=== PATIENT | male | born 1970 | race African-American/Black ===

== ENCOUNTER 2021-05-24 07:29 | Emergency (ER) | payer OTHER ==
[~2021-05-24] VITALS: Ht 165.1 cm; Wt 75.0 kg
[2021-05-24 08:27] LABS: BASOPHILS % 0.4 % (0.0-2.0); EOSINOPHILS % 2.3 % (0.0-5.0); HEMATOCRIT. 36.9 % (42.0-52.0); HEMOGLOBIN. 12.1 g/dL (14.0-18.0); LYMPHOCYTES % 22.4 % (20.0-50.0); MEAN CORPUSCULAR HEMOGLOBIN 27.4 pg (28.0-32.0); MEAN CORPUSCULAR VOLUME 83.5 fL (80.0-94.0); MEAN PLATELET VOLUME 6.9 fl (7.4-10.4); MONOCYTES % 12.2 % (2.0-8.0); NEUTROPHILS % 62.7 % (40.0-76.0); PLATELET 360 x1000/uL (130-400); RED BLOOD CELL COUNT 4.42 mill/uL (4.7-6.1); RED CELL DISTRIBUTION WIDTH 17.1 % (11.6-14.6)
[2021-05-24 08:34] LABS: CHLORIDE 109 mEq/L (98-107)
[2021-05-24 09:27] VITALS: BP 151/88
== END 2021-05-24 11:11 | disposition home or self-care (01) ==
LOC: ER 07:29
DX: R07.89 Other chest pain (principal); R00.2 Palpitations; R53.1 Weakness
CPT/HCPCS: 36415; 71045; 80053; 84484; 85025; 93005; 99285

== ENCOUNTER 2021-10-24 13:35 | Emergency (ER) | payer OTHER ==
[~2021-10-24] VITALS: Ht 198.1 cm; Wt 105.0 kg
[2021-10-24] MEDS ORDERED: IBUPROFEN 800MG TABLET PO ONE (14:30)
[2021-10-24] MEDS ORDERED: IBUP-2030 MT (15:27)
[2021-10-24 16:08] VITALS: BP 126/75
== END 2021-10-24 16:10 | disposition home or self-care (01) ==
LOC: ER 13:35
DX: S59.802A Other specified injuries of left elbow, initial encounter (principal); S69.82XA Other specified injuries of left wrist, hand and finger(s), initial encounter; V49.49XA Driver injured in collision with other motor vehicles in traffic accident, initial encounter; Y93.89 Activity, other specified; Y92.89 Other specified places as the place of occurrence of the external cause; Y99.8 Other external cause status
CPT/HCPCS: 73080; 73110; 99284

== ENCOUNTER 2021-10-28 11:23 | Emergency (ER) | payer OTHER ==
[~2021-10-28] VITALS: Ht 198.1 cm; Wt 104.0 kg
[~2021-10-28 11:23] MED LIST: IBUP-2030 MT
[2021-10-28 11:32] VITALS: BP 106/62
== END 2021-10-28 15:08 | disposition home or self-care (01) ==
LOC: ER 11:23
DX: S59.902D Unspecified injury of left elbow, subsequent encounter (principal); S60.912D Unspecified superficial injury of left wrist, subsequent encounter; V09.9XXD Pedestrian injured in unspecified transport accident, subsequent encounter
CPT/HCPCS: 99281

== ENCOUNTER 2023-12-28 18:35 | Inpatient (IN) | payer OTHER, MEDICAID ==
[~2023-12-28] VITALS: Ht 198.1 cm; Wt 86.4 kg
[2023-12-28 19:18] LABS: BASOPHILS % 0.2 % (0.0-2.0); LYMPHOCYTES % 9.5 % (20.0-50.0); MEAN CORPUSCULAR HEMOGLOBIN 20.9 pg (28.0-32.0); MEAN CORPUSCULAR HGB CONC 29.9 g/dL (31.0-37.0); MEAN CORPUSCULAR VOLUME 69.9 fL (80.0-94.0); MEAN PLATELET VOLUME 7.6 fl (7.4-10.4); MONOCYTES % 13.7 % (2.0-8.0); NEUTROPHILS % 76.6 % (40.0-76.0); PLATELET 564 x1000/uL (130-400); RED BLOOD CELL COUNT 2.98 mill/uL (4.7-6.1); RED CELL DISTRIBUTION WIDTH 33.8 % (11.6-14.6); WHITE BLOOD COUNT 24.1 x1000/uL (4.5-11.0)
[2023-12-28 19:21] LABS: DIFFERENTIAL COMMENT 1
[2023-12-28 19:23] LABS: POTASSIUM 3.8 mEq/L (3.5-5.1)
[2023-12-28 19:48] LABS: HEMATOCRIT. 20.9 % (42.0-52.0); HEMOGLOBIN. 6.2 g/dL (14.0-18.0)
[2023-12-28 20:22] LABS: ADD RBC MORPHOLOGY YES
[2023-12-28 20:23] LABS: ANISOCYTOSIS 3+; HYPOCHROMASIA 2+; MICROCYTOSIS 3+; PLATELET ESTIMATE INCREASED
[2023-12-29] VITALS (9 sets, daily range): BP systolic 116–156; BP diastolic 65–83; PULSE 83–109; RESP 18–20; TEMP 36.78072–39.39204; O2SAT 96–100
[2023-12-29] MEDS ORDERED: ACETAMINOPHEN 325MG TABLET PO PRN
[2023-12-29] MEDS: HYDROCODONE/ACETAMINOPHEN 10/325MG TABLET PO PRN (00:38)
[2023-12-29 10:32] LABS: HEMATOCRIT. 22.7 % (42.0-52.0); MEAN CORPUSCULAR HGB CONC 29.7 g/dL (31.0-37.0); MEAN CORPUSCULAR VOLUME 70.7 fL (80.0-94.0); MEAN PLATELET VOLUME 8.7 fl (7.4-10.4); PLATELET 530 x1000/uL (130-400); RED BLOOD CELL COUNT 3.21 mill/uL (4.7-6.1); RED CELL DISTRIBUTION WIDTH 32.7 % (11.6-14.6); WHITE BLOOD COUNT 20.8 x1000/uL (4.5-11.0)
[2023-12-29 11:15] LABS: DIFFERENTIAL COMMENT 1
[2023-12-29 11:18] LABS: HEMOGLOBIN. 6.7 g/dL (14.0-18.0)
[2023-12-29] MEDS ORDERED: ONDANSETRON HCL 4MG/2ML INJ IV PRN (11:30)
[2023-12-29] MEDS ORDERED: LEVOFLOXACIN 500MG PREMIX 100 ML IV SCH (13:00)
[2023-12-29] MEDS ORDERED: LEVOFLOXACIN 250MG PREMIX 50 ML IV SCH ×2 (14:00→18:00)
[2023-12-29] MEDS: ASCORBIC ACID 500 MG TABLET PO SCH (17:35)
[2023-12-29] MEDS: PANTOPRAZOLE SODIUM 40 MG/VIAL IV SCH (17:35)
[2023-12-29] MEDS: FERROUS SULFATE 325MG TABLET PO SCH (17:35)
[2023-12-29] MEDS ORDERED: NALOXONE HCL 0.4MG/ML VIAL IV PRN (17:45)
[2023-12-29 18:22] LABS: HEMOGLOBIN 7.3 g/dL (14.0-18.0)
[2023-12-29] MEDS: LEVOFLOXACIN 500MG PREMIX 100 ML IV SCH (18:50)
[2023-12-29 19:00] LABS: INR 1.1; PROTHROMBIN TIME 12.4 sec (9.6-11.0)
[2023-12-29] MEDS: LEVOFLOXACIN 250MG PREMIX 50 ML IV SCH (19:54)
[2023-12-30] VITALS: BP 136/89; PULSE 98; RESP 18; TEMP 37.16964; O2SAT 100
[2023-12-30 04:00] VITALS: BP 119/89; PULSE 101; RESP 19; TEMP 37.503; O2SAT 98
[2023-12-30 08:00] VITALS: BP 136/66; PULSE 86; RESP 18; TEMP 36.6696; O2SAT 100
[2023-12-30 11:35] LABS: CHLORIDE 105 mEq/L (98-107); POTASSIUM 4.8 mEq/L (3.5-5.1); SODIUM 135 mEq/L (136-145)
[2023-12-30 11:37] LABS: CARBON DIOXIDE 26 mEq/L (21-32); HEMATOCRIT. 26.2 % (42.0-52.0); HEMOGLOBIN. 7.9 g/dL (14.0-18.0); MEAN CORPUSCULAR HEMOGLOBIN 21.6 pg (28.0-32.0); MEAN PLATELET VOLUME 7.2 fl (7.4-10.4); PLATELET 575 x1000/uL (130-400); RED BLOOD CELL COUNT 3.64 mill/uL (4.7-6.1); RED CELL DISTRIBUTION WIDTH 32.6 % (11.6-14.6); WHITE BLOOD COUNT 16.6 x1000/uL (4.5-11.0)
[2023-12-30 11:38] LABS: CALCIUM 8.8 mg/dL (8.7-10.4)
[2023-12-30 11:42] LABS: CREATININE 1.7 mg/dL (0.6-1.3); GLUCOSE 102 mg/dL (70-105)
[2023-12-30 11:43] LABS: UREA NITROGEN BLOOD 18 mg/dL (9-23)
[2023-12-30 11:44] LABS: ALANINE AMINOTRANSFERASE 41 IU/L (10-49); ALBUMIN 3.1 g/dL (3.2-4.8); ASPARTATE AMINOTRANSFERASE 36 IU/L (<34)
[2023-12-30 11:45] LABS: BILIRUBIN DIRECT 0.4 mg/dL (<=3.0); BILIRUBIN TOTAL 0.9 mg/dL (0.1-1.0); PROTEIN TOTAL 6.5 g/dL (6.0-8.3)
[2023-12-30 12:00] VITALS: BP 132/73; RESP 18; TEMP 36.114; O2SAT 100
[2023-12-30 12:07] LABS: DIFFERENTIAL COMMENT 1
[2023-12-30 12:44] LABS: CREATINE KINASE 266 IU/L (46-171)
[2023-12-30 12:59] LABS: HEPATITIS B SURFACE ANTIGEN NEGATIVE (Negative)
[2023-12-30 13:19] LABS: HEPATITIS A AB IGM NEGATIVE (Negative)
[2023-12-30 13:20] LABS: HEPATITIS B CORE AB IGM NEGATIVE (Negative)
[2023-12-30 13:21] LABS: HEPATITIS C AB NON REACTIVE (Neg) (Negative)
[2023-12-30] MEDS: METRONIDAZOLE 500MG TABLET PO SCH (13:34)
[2023-12-30 15:00] VITALS: BP 132/73; PULSE 87; RESP 18; TEMP 35.89176; O2SAT 100
[2023-12-30 16:59] LABS: CLARITY URINE CLEAR (CLEAR); COLOR URINE DARK YELLOW (YELLOW); GLUCOSE URINE NEGATIVE (NEGATIVE); KETONES URINE NEGATIVE (NEGATIVE); LEUKOCYTE ESTERASE URINE NEGATIVE (NEGATIVE); NITRITE URINE NEGATIVE (NEGATIVE); OCCULT BLOOD URINE NEGATIVE (NEGATIVE); PH URINE 5.5 (4.5-8.0); PROTEIN URINE 1+ (NEGATIVE); SPECIFIC GRAVITY URINE 1.021 (1.005-1.030)
[2023-12-30 17:53] LABS: BACTERIA URINE 2+; RBC URINE NONE SEEN /hpf (0-2); SQUAMOUS EPITHELIAL CELL URINE RARE /lpf (RARE/1+); WBC URINE 0-2 /hpf (0-2)
[2023-12-30] MEDS: LACTOBACILLUS GG CAPSULE PO SCH (17:54)
[2023-12-30 18:18] LABS: ANISOCYTOSIS 3+; HYPOCHROMASIA 2+; MICROCYTOSIS 2+; PLATELET ESTIMATE INCREASED
[2023-12-30] MEDS: LEVOFLOXACIN 250MG TABLET PO SCH (19:02)
[2023-12-30 20:00] VITALS: BP 134/82; PULSE 77; RESP 18; TEMP 36.61404; O2SAT 100
[2023-12-30 21:50] LABS: PLATELET ESTIMATE SLIGHTLY INCREASED
[2023-12-30 21:51] LABS: ANISOCYTOSIS 3+; HYPOCHROMASIA 2+; MICROCYTOSIS 2+
[2023-12-30 21:52] LABS: TARGET CELLS 1+
[2023-12-30 22:14] LABS: HEMATOCRIT 23.5 % (42.0-52.0); HEMOGLOBIN 7.2 g/dL (14.0-18.0)
[2023-12-31] VITALS: BP 136/71; PULSE 81; RESP 18; TEMP 36.78072; O2SAT 100
[2023-12-31 04:00] VITALS: BP 117/88; PULSE 71; RESP 18; TEMP 36.72516; O2SAT 100
[2023-12-31 06:09] LABS: CHLORIDE 104 mEq/L (98-107); POTASSIUM 4.4 mEq/L (3.5-5.1); SODIUM 135 mEq/L (136-145)
[2023-12-31 06:12] LABS: CARBON DIOXIDE 25 mEq/L (21-32)
[2023-12-31 06:13] LABS: CALCIUM 8.7 mg/dL (8.7-10.4)
[2023-12-31 06:17] LABS: CREATININE 1.5 mg/dL (0.6-1.3); GLUCOSE 82 mg/dL (70-105)
[2023-12-31 06:18] LABS: ALANINE AMINOTRANSFERASE 34 IU/L (10-49); UREA NITROGEN BLOOD 18 mg/dL (9-23)
[2023-12-31 06:19] LABS: ASPARTATE AMINOTRANSFERASE 32 IU/L (<34)
[2023-12-31 06:20] LABS: BILIRUBIN DIRECT 0.3 mg/dL (<=3.0); BILIRUBIN TOTAL 0.6 mg/dL (0.1-1.0)
[2023-12-31 06:28] LABS: HEMATOCRIT. 23.9 % (42.0-52.0); HEMOGLOBIN. 7.3 g/dL (14.0-18.0); MEAN CORPUSCULAR HEMOGLOBIN 21.9 pg (28.0-32.0); MEAN CORPUSCULAR HGB CONC 30.7 g/dL (31.0-37.0); MEAN CORPUSCULAR VOLUME 71.4 fL (80.0-94.0); MEAN PLATELET VOLUME 7.4 fl (7.4-10.4); PLATELET 561 x1000/uL (130-400); RED BLOOD CELL COUNT 3.34 mill/uL (4.7-6.1); RED CELL DISTRIBUTION WIDTH 32.6 % (11.6-14.6); WHITE BLOOD COUNT 13.9 x1000/uL (4.5-11.0)
[2023-12-31 06:43] LABS: INR 1.2
[2023-12-31 07:34] LABS: DIFFERENTIAL COMMENT 1
[2023-12-31 08:00] VITALS: BP 142/94; PULSE 60; RESP 18; TEMP 36.3918; O2SAT 100
[2023-12-31] MEDS: BISACODYL 5MG TABLET PO SCH (11:45)
[2023-12-31] MEDS: SORBITOL 70% SOLN 30ML PO SCH (11:45)
[2023-12-31 12:00] VITALS: BP 135/83; PULSE 80; RESP 18; TEMP 36.55848; O2SAT 100
[2023-12-31] MEDS: METOCLOPRAMIDE HCL 10MG/2ML VIAL IV SCH (14:34)
[2023-12-31 16:00] VITALS: BP 151/89; PULSE 81; RESP 18; TEMP 36.3918; O2SAT 100
[2023-12-31 16:27] LABS: PLATELET ESTIMATE SLIGHTLY INCREASED
[2023-12-31 16:28] LABS: ANISOCYTOSIS 2+; HYPOCHROMASIA 2+; MICROCYTOSIS 2+; TARGET CELLS 1+
[2023-12-31 20:00] VITALS: BP 144/81; PULSE 82; RESP 18; TEMP 36.50292; O2SAT 100
[2023-12-31] MEDS: DEXT 5%/0.9% NACL 1,000 ML IV SCH (22:55)
[2023-12-31] MEDS: ACETAMINOPHEN 500MG TABLET PO PRN (22:55)
[2024-01-01] VITALS: BP 150/85; PULSE 91; RESP 18; TEMP 36.28068; O2SAT 100
[2024-01-01 04:00] VITALS: BP 146/62; PULSE 95; TEMP 36.89184; O2SAT 100
[2024-01-01 07:04] LABS: HEMATOCRIT. 25.6 % (42.0-52.0); HEMOGLOBIN. 7.7 g/dL (14.0-18.0); MEAN CORPUSCULAR HEMOGLOBIN 21.7 pg (28.0-32.0); MEAN CORPUSCULAR HGB CONC 30.2 g/dL (31.0-37.0); MEAN CORPUSCULAR VOLUME 71.8 fL (80.0-94.0); MEAN PLATELET VOLUME 7.4 fl (7.4-10.4); PLATELET 704 x1000/uL (130-400); RED BLOOD CELL COUNT 3.57 mill/uL (4.7-6.1); RED CELL DISTRIBUTION WIDTH 33.7 % (11.6-14.6); WHITE BLOOD COUNT 20.9 x1000/uL (4.5-11.0)
[2024-01-01 07:09] LABS: CHLORIDE 103 mEq/L (98-107); POTASSIUM 3.9 mEq/L (3.5-5.1); SODIUM 134 mEq/L (136-145)
[2024-01-01 07:10] LABS: CALCIUM 8.9 mg/dL (8.7-10.4); CARBON DIOXIDE 26 mEq/L (21-32)
[2024-01-01 07:15] LABS: CREATININE 1.6 mg/dL (0.6-1.3); GLUCOSE 103 mg/dL (70-105)
[2024-01-01 07:16] LABS: UREA NITROGEN BLOOD 15 mg/dL (9-23)
[2024-01-01 07:17] LABS: ALANINE AMINOTRANSFERASE 34 IU/L (10-49); ALBUMIN 3.3 g/dL (3.2-4.8); ASPARTATE AMINOTRANSFERASE 34 IU/L (<34); BILIRUBIN DIRECT 0.3 mg/dL (<=3.0); PHOSPHORUS 3.9 mg/dL (2.5-4.9)
[2024-01-01 07:18] LABS: BILIRUBIN TOTAL 0.7 mg/dL (0.1-1.0); PROTEIN TOTAL 6.6 g/dL (6.0-8.3)
[2024-01-01 07:31] LABS: DIFFERENTIAL COMMENT 1
[2024-01-01 08:00] VITALS: BP 135/85; PULSE 90; RESP 18; TEMP 36.28068; O2SAT 100
[2024-01-01 08:07] LABS: INR 1.2; PROTHROMBIN TIME 13.5 sec (9.6-11.0)
[2024-01-01 12:00] VITALS: BP 118/69; PULSE 86; RESP 17; TEMP 36.3918; O2SAT 99
[2024-01-01] MEDS ORDERED: MIDAZOLAM HCL 2 MG/2 ML VIAL ONE (15:21)
[2024-01-01] MEDS ORDERED: LIDOCAINE HCL 1% 20ML VIAL ONE (15:21)
[2024-01-01] MEDS ORDERED: PROPOFOL 200MG/20ML VIAL IV ONE ×2 (15:21→15:56)
[2024-01-01] MEDS ORDERED: FENTANYL CITRATE/PF 50MCG/ML 2ML VIAL ONE (15:43)
[2024-01-01 16:00] VITALS: BP 123/65; PULSE 90; RESP 18; TEMP 36.05844; O2SAT 100
[2024-01-01] MEDS ORDERED: ONDANSETRON HCL 4MG/2ML INJ IV PRN (16:30)
[2024-01-01] MEDS ORDERED: FENTANYL CITRATE/PF 50MCG/ML 2ML VIAL IV PRN (16:30)
[2024-01-01 16:57] LABS: ANISOCYTOSIS 3+; HYPOCHROMASIA 2+; MICROCYTOSIS 2+; PLATELET ESTIMATE INCREASED
[2024-01-01 20:00] VITALS: PULSE 88; RESP 18; TEMP 36.55848; O2SAT 100
[2024-01-02] VITALS: BP 128/75; PULSE 83; RESP 18; TEMP 36.55848; O2SAT 100
[2024-01-02 04:00] VITALS: BP 118/77; PULSE 85; RESP 18; TEMP 36.55848; O2SAT 100
[2024-01-02 06:20] LABS: CHLORIDE 107 mEq/L (98-107); POTASSIUM 4.1 mEq/L (3.5-5.1); SODIUM 136 mEq/L (136-145)
[2024-01-02 06:22] LABS: CARBON DIOXIDE 25 mEq/L (21-32)
[2024-01-02 06:23] LABS: CALCIUM 8.6 mg/dL (8.7-10.4)
[2024-01-02 06:28] LABS: CREATININE 1.6 mg/dL (0.6-1.3); GLUCOSE 87 mg/dL (70-105); UREA NITROGEN BLOOD 15 mg/dL (9-23)
[2024-01-02 06:29] LABS: ALANINE AMINOTRANSFERASE 25 IU/L (10-49); ALBUMIN 2.9 g/dL (3.2-4.8); ASPARTATE AMINOTRANSFERASE 26 IU/L (<34)
[2024-01-02 06:30] LABS: BILIRUBIN DIRECT 0.3 mg/dL (<=3.0); BILIRUBIN TOTAL 0.5 mg/dL (0.1-1.0); PROTEIN TOTAL 6.1 g/dL (6.0-8.3)
[2024-01-02 08:00] VITALS: BP 131/81; PULSE 75; RESP 19; TEMP 37.28076; O2SAT 100
[2024-01-02 08:14] LABS: HEMATOCRIT. 24.2 % (42.0-52.0); HEMOGLOBIN. 7.4 g/dL (14.0-18.0); MEAN CORPUSCULAR HEMOGLOBIN 22.5 pg (28.0-32.0); MEAN CORPUSCULAR HGB CONC 30.8 g/dL (31.0-37.0); MEAN PLATELET VOLUME 7.4 fl (7.4-10.4); PLATELET 647 x1000/uL (130-400); RED BLOOD CELL COUNT 3.32 mill/uL (4.7-6.1); WHITE BLOOD COUNT 10.7 x1000/uL (4.5-11.0)
[2024-01-02 08:40] LABS: DIFFERENTIAL COMMENT 1
[2024-01-02] MEDS: LEVOFLOXACIN 250MG TABLET PO SCH (09:00)
[2024-01-02 12:00] VITALS: BP 140/89; PULSE 74; RESP 18; TEMP 37.89192; O2SAT 100
[2024-01-02 16:00] VITALS: BP 134/77; PULSE 81; RESP 19; TEMP 36.72516; O2SAT 100
[2024-01-02] MEDS ORDERED: LEVO-65 MT (18:37)
[2024-01-02] MEDS ORDERED: METR-167 MT (18:37)
[2024-01-02] MEDS ORDERED: HYDR-4001 MT (18:38)
[2024-01-02 19:47] VITALS: BP 114/62; PULSE 88; TEMP 97.8; O2SAT 99
[2024-01-02 21:20] LABS: ANISOCYTOSIS 3+; HYPOCHROMASIA 1+; MICROCYTOSIS 2+; PLATELET ESTIMATE INCREASED
== END 2024-01-02 20:15 | disposition home or self-care (01) | DRG 871 ==
LOC: ER 18:35 → EDBEDREQ 21:23 → EDBEDREQTM 21:23 → 5WST 12-29 02:22 → 7WST 12-29 12:07
PROVIDERS: ADMIT Internal Medicine; ATTEND Internal Medicine
PROC: 30233N1 Transfusion of Nonautologous Red Blood Cells into Peripheral Vein, Percutaneous Approach (ICD-10-PCS; 2023-12-29)
PROC: 0DBN8ZX Excision of Sigmoid Colon, Via Natural or Artificial Opening Endoscopic, Diagnostic (ICD-10-PCS; principal; 2024-01-01)
DX: A41.9 Sepsis, unspecified organism (principal); N17.0 Acute kidney failure with tubular necrosis; C78.7 Secondary malignant neoplasm of liver and intrahepatic bile duct; N13.30 Unspecified hydronephrosis; R65.20 Severe sepsis without septic shock; R13.10 Dysphagia, unspecified; D50.9 Iron deficiency anemia, unspecified; N18.9 Chronic kidney disease, unspecified; I12.9 Hypertensive chronic kidney disease with stage 1 through stage 4 chronic kidney disease, or unspecified chronic kidney disease; R97.0 Elevated carcinoembryonic antigen [CEA]; R74.01 Elevation of levels of liver transaminase levels; K63.9 Disease of intestine, unspecified; F19.10 Other psychoactive substance abuse, uncomplicated; Z20.822 Contact with and (suspected) exposure to COVID-19; F12.90 Cannabis use, unspecified, uncomplicated; R63.4 Abnormal weight loss; Z88.0 Allergy status to penicillin; Z68.22 Body mass index [BMI] 22.0-22.9, adult; Z79.899 Other long term (current) drug therapy
CPT/HCPCS: 36415; 76770; 80048; 80076; 81003; 82105; 82248; 82270; 82378; 82550; 83735; 84100; 84145; 85014; 85018; 85025; 85044; 86705; 86709; 86850; 86900; 86920; 87340; 87426; 87804; 88304; 89055; 93005; 99291; J1956; J2250; J2405; J2470; J2704; J2765; J3010; J3490; J7042; P9016

== ENCOUNTER 2024-02-23 18:09 | Emergency (ER) | payer OTHER, MEDICAID ==
[~2024-02-23] VITALS: Ht 198.1 cm; Wt 83.9 kg
[~2024-02-23 18:09] MED LIST changes: +HYDR-4001 MT; -IBUP-2030 MT; +LEVO-65 MT; +METR-167 MT
[2024-02-23 18:19] VITALS: BP 139/86; PULSE 92; RESP 16; TEMP 98; O2SAT 100
[2024-02-23 21:44] LABS: HEMATOCRIT. 24.3 % (42.0-52.0); HEMOGLOBIN. 7.6 g/dL (14.0-18.0); MEAN CORPUSCULAR HEMOGLOBIN 21.3 pg (28.0-32.0); MEAN CORPUSCULAR HGB CONC 31.1 g/dL (31.0-37.0); MEAN CORPUSCULAR VOLUME 68.5 fL (80.0-94.0); MEAN PLATELET VOLUME 6.8 fl (7.4-10.4); PLATELET 791 x1000/uL (130-400); RED BLOOD CELL COUNT 3.55 mill/uL (4.7-6.1); RED CELL DISTRIBUTION WIDTH 21.4 % (11.6-14.6); WHITE BLOOD COUNT 10.6 x1000/uL (4.5-11.0)
[2024-02-23 21:45] LABS: CHLORIDE 104 mEq/L (98-107); POTASSIUM 4.6 mEq/L (3.5-5.1); SODIUM 137 mEq/L (136-145)
[2024-02-23 21:46] LABS: CALCIUM 9.3 mg/dL (8.7-10.4); CARBON DIOXIDE 28 mEq/L (21-32)
[2024-02-23 21:47] LABS: DIFFERENTIAL COMMENT 1
[2024-02-23 21:51] LABS: CREATININE 1.7 mg/dL (0.6-1.3); GLUCOSE 94 mg/dL (70-105); UREA NITROGEN BLOOD 17 mg/dL (9-23)
[2024-02-23 21:53] LABS: ALANINE AMINOTRANSFERASE 18 IU/L (10-49); ALBUMIN 3.5 g/dL (3.2-4.8); ASPARTATE AMINOTRANSFERASE 31 IU/L (<34); BILIRUBIN DIRECT 0.1 mg/dL (<=3.0); BILIRUBIN TOTAL 0.3 mg/dL (0.1-1.0); PROTEIN TOTAL 7.2 g/dL (6.0-8.3)
[2024-02-23 22:25] LABS: INR 1.1; PARTIAL THROMBOPLASTIN TIME 25.1 sec (23.4-31.0); PROTHROMBIN TIME 11.8 sec (9.6-11.0)
[2024-02-23] MEDS ORDERED: SODIUM CHLORIDE 0.9% 1,000 ML IV ONE (22:45)
[2024-02-23 23:52] LABS: PLATELET ESTIMATE MARKEDLY INCREASED
[2024-02-23 23:53] LABS: ANISOCYTOSIS 2+; HYPOCHROMASIA 2+; MICROCYTOSIS 3+
== END 2024-02-24 02:00 | disposition left against medical advice (07) ==
LOC: ER 18:09
DX: D64.9 Anemia, unspecified (principal); Z88.0 Allergy status to penicillin
CPT/HCPCS: 99284; 71045; 80076; 80048; 85025; 85610; 85730; 86850; 86900; 86901; 86920; 36415; J7030

== ENCOUNTER 2024-04-10 13:50 | Inpatient (IN) | payer OTHER, MEDICAID ==
[~2024-04-10] VITALS: Ht 198.1 cm; Wt 81.8 kg
[2024-04-10 14:12] VITALS: O2SAT 100
[2024-04-10 15:39] LABS: CHLORIDE 105 mEq/L (98-107); POTASSIUM 3.9 mEq/L (3.5-5.1); SODIUM 142 mEq/L (136-145)
[2024-04-10 15:40] LABS: CALCIUM 8.6 mg/dL (8.7-10.4); CARBON DIOXIDE 29 mEq/L (21-32)
[2024-04-10 15:45] LABS: BASOPHILS % 0.4 % (0.0-2.0); GLUCOSE 109 mg/dL (70-105); LYMPHOCYTES % 14.8 % (20.0-50.0); MEAN CORPUSCULAR HEMOGLOBIN 18.4 pg (28.0-32.0); MEAN CORPUSCULAR HGB CONC 29.4 g/dL (31.0-37.0); MEAN CORPUSCULAR VOLUME 62.7 fL (80.0-94.0); MEAN PLATELET VOLUME 6.7 fl (7.4-10.4); MONOCYTES % 12.9 % (2.0-8.0); NEUTROPHILS % 70.9 % (40.0-76.0); PLATELET 897 x1000/uL (130-400); RED BLOOD CELL COUNT 3.26 mill/uL (4.7-6.1); RED CELL DISTRIBUTION WIDTH 21.4 % (11.6-14.6); UREA NITROGEN BLOOD 17 mg/dL (9-23)
[2024-04-10 15:46] LABS: DIFFERENTIAL COMMENT 1
[2024-04-10 15:48] LABS: ADD RBC MORPHOLOGY YES
[2024-04-10 15:56] LABS: HEMATOCRIT. 20.5 % (42.0-52.0)
[2024-04-10 16:00] LABS: INR 1.2
[2024-04-10 16:02] LABS: CREATININE 2.4 mg/dL (0.6-1.3); TROPONIN I HIGH SENSITIVITY < 4 ng/L (3.0-53)
[2024-04-10] MEDS: SODIUM CHLORIDE 0.9% 500 ML IV ONE (16:51)
[2024-04-10 18:22] LABS: ANISOCYTOSIS 2+; HYPOCHROMASIA 3+; MICROCYTOSIS 3+; PLATELET ESTIMATE MARKEDLY INCREASED
[2024-04-10 22:50] VITALS: BP 167/99; PULSE 81; RESP 20; TEMP 36.28068
[2024-04-10 23:00] VITALS: BP 167/99; PULSE 81; RESP 20; TEMP 36.3
[2024-04-10 23:10] VITALS: BP 158/89; PULSE 77; RESP 18; TEMP 36.22512
[2024-04-11] VITALS: BP 161/99; PULSE 83; RESP 19; TEMP 36.3; O2SAT 97
[2024-04-11 00:10] VITALS: BP 156/93; PULSE 77; PULSE 80; RESP 18; TEMP 36.28068
[2024-04-11 01:10] VITALS: BP 144/102; PULSE 81; RESP 18; TEMP 36.55848
== END 2024-04-11 02:05 | disposition left against medical advice (07) | DRG 379 ==
LOC: ER 13:50 → EDBEDREQ 18:30 → 7WST 21:43
PROVIDERS: ADMIT Internal Medicine; ATTEND Internal Medicine
PROC: 30233N1 Transfusion of Nonautologous Red Blood Cells into Peripheral Vein, Percutaneous Approach (ICD-10-PCS; principal; 2024-04-10)
DX: K62.5 Hemorrhage of anus and rectum (principal); Z85.038 Personal history of other malignant neoplasm of large intestine; Z88.0 Allergy status to penicillin; R06.02 Shortness of breath; Z53.29 Procedure and treatment not carried out because of patient's decision for other reasons
CPT/HCPCS: 36415; 71045; 80048; 84484; 85025; 86850; 86900; 86920; 93005; 99285; P9016